=== PATIENT | female | born 1980 ===

== ENCOUNTER 2018-10-06 08:57 | Day surgery (SDC) | payer OTHER ==
[2018-10-06] MEDS ORDERED: Lactated Ringer's 500 ML IV ONE (09:30)
[2018-10-06 10:10] VITALS: BMI 29.6
[2018-10-06 10:11] VITALS: O2SAT 100
[2018-10-06] MEDS ORDERED: Propofol 10 mg/ml Inj (20 ML) ONE (10:59)
[2018-10-06 12:08] VITALS: BP 111/71; PULSE 78; RESP 16; TEMP 97
== END 2018-10-06 11:30 | disposition home or self-care (01) ==
LOC: H.ENDO 08:57
PROVIDERS: ATTEND Internal Medicine Gastroenterology
DX: K31.89 Other diseases of stomach and duodenum (principal); K21.9 Gastro-esophageal reflux disease without esophagitis; R12 Heartburn; J45.909 Unspecified asthma, uncomplicated; E03.9 Hypothyroidism, unspecified; F32.9 Major depressive disorder, single episode, unspecified; G43.909 Migraine, unspecified, not intractable, without status migrainosus
CPT/HCPCS: 36415; 43239; 84703; 88305; J2001; J2704; J7120

== ENCOUNTER 2019-01-08 13:46 | Emergency (ER) | payer BC, OTHER ==
[2019-01-08 13:48] VITALS: BMI 30.8
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
[2019-01-08 16:43] VITALS: BP 120/78; PULSE 78; RESP 18; TEMP 98; O2SAT 100
== END 2019-01-08 16:38 | disposition home or self-care (01) ==
LOC: H.ER 13:46
DX: M54.5 Low back pain (principal); Z86.59 Personal history of other mental and behavioral disorders; G89.29 Other chronic pain; J45.909 Unspecified asthma, uncomplicated; Z98.84 Bariatric surgery status; V49.49XA Driver injured in collision with other motor vehicles in traffic accident, initial encounter